=== PATIENT | male | born 1960 | race Caucasian/White ===

== ENCOUNTER 2018-12-13 10:43 | Inpatient (IN) | payer MEDICAID, OTHER ==
[~2018-12-13] VITALS: Ht 182.9 cm; Wt 88.5 kg
[2018-12-13 10:49] VITALS: BP_SYST 129
[2018-12-13] MEDS ORDERED: NACL 0.9% 1,000 ML IV ONE (11:10)
[2018-12-13] MEDS ORDERED: MORPHINE 4 MG/ML INJ. SYRINGE IVP ONE (11:15)
[2018-12-13] MEDS ORDERED: ONDANSETRON HCL 4 MG/2 ML VIAL IVP ONE ×2 (11:15→17:05)
[2018-12-13 11:51] LABS: BASOPHILS # (AUTO) 0.1 K/uL (0.0-0.2); BASOPHILS % (AUTO) 0.7 % (0.0-2.0); EOSINOPHILS % (AUTO) 0.3 % (0.0-4.0); HEMATOCRIT 41.1 % (36-54); HEMOGLOBIN 13.9 g/dL (14.0-18.0); LYMPHOCYTES # (AUTO) 0.4 K/uL (1.0-5.5); LYMPHOCYTES % (AUTO) 5.2 % (20.5-51.5); MEAN CORPUSCULAR HEMOGLOBIN 31 pg (27-31); MEAN CORPUSCULAR HGB CONC 34 % (32-36); MEAN CORPUSCULAR VOLUME 90 fL (79.0-98.0); MONOCYTES # (AUTO) 0.4 K/uL (0.0-1.0); MONOCYTES % (AUTO) 5.7 % (1.7-9.3); NEUTROPHILS % (AUTO) 88.1 % (40.0-70.0); PLATELET COUNT (AUTO) 213 K/uL (130-430); RED BLOOD CELL COUNT(AUTO) 4.57 MIL/uL (4.2-6.2); RED CELL DISTRIBUTION WIDTH 13.8 % (9.0-15.0); WHITE BLOOD COUNT (AUTO) 7.9 K/uL (4.8-10.8)
[2018-12-13 12:00] LABS: CALCIUM 9.5 mg/dL (8.4-11.0); CREATININE 0.97 mg/dL (0.55-1.30); POTASSIUM 4.1 mmol/L (3.5-5.1)
[2018-12-13 12:03] LABS: PROTHROMBIN TIME 10.5 SECS (9.5-12.5)
[2018-12-13 12:05] LABS: ALBUMIN 4.2 g/dL (3.4-4.8); TOTAL BILIRUBIN 0.6 mg/dL (0.0-1.0)
[2018-12-13 12:18] LABS: BILIRUBIN,URINE NEGATIVE (NEGATIVE); BLOOD, URINE NEGATIVE (NEGATIVE); CLARITY/URINE CLEAR (CLEAR); COLOR,URINE YELLOW (YELLOW); GLUCOSE,URINE 1+ (NEGATIVE); KETONES,URINE TRACE (NEGATIVE); LEUKOCYTE ESTERASE ,URINE NEGATIVE (NEGATIVE); NITRITE, URINE NEGATIVE (NEGATIVE); PH,URINE 6.5 (5.0-8.0); PROTEIN URINE NEGATIVE (NEGATIVE)
[2018-12-13] MEDS ORDERED: PIPERACILLIN/TAZO 4.5 GM in NS 100 ML IV ONE (12:30)
[2018-12-13] MEDS ORDERED: FAMOTIDINE PF 20 MG/2 ML VIAL IVP SCH (13:15)
[2018-12-13] MEDS ORDERED: ONDANSETRON HCL 4 MG/2 ML VIAL IVP PRN (13:15)
[2018-12-13] MEDS ORDERED: LR 1,000 ML IV SCH ×2 (13:30→18:08)
[2018-12-13 13:49] LABS: PROTHROMBIN TIME 10.4 SECS (9.5-12.5)
[2018-12-13 14:30] VITALS: BP_SYST 153
[2018-12-13] MEDS ORDERED: TEMAZEPAM 15 MG CAPSULE PO PRN (16:45)
[2018-12-13] MEDS ORDERED: MORPHINE 2 MG/ML INJ. SYRINGE IVP PRN (16:45)
[2018-12-13] MEDS ORDERED: MORPHINE 4 MG/ML INJ. SYRINGE IVP PRN ×4 (16:45→18:15)
[2018-12-13] MEDS ORDERED: ROCURONIUM BROMIDE 10 MG/ML (ZEMURON) IV ONE (17:05)
[2018-12-13] MEDS ORDERED: BUPIVACAINE LIPOSOME/PF 266 MG/20 ML VIAL INFIL ONE ×2 (17:05→18:31)
[2018-12-13] MEDS ORDERED: PROPOFOL 200MG/ 20ML VIAL (DIPRIVAN) IV ONE (17:05)
[2018-12-13] MEDS ORDERED: SEVOFLURANE 15 MIN GAS INH ONE (17:05)
[2018-12-13] MEDS ORDERED: NS IRRIG SOLN 1000 ML IR ONE (17:05)
[2018-12-13] MEDS ORDERED: MIDAZOLAM HCL 5 MG/5 ML VIAL IVP ONE (17:05)
[2018-12-13] MEDS ORDERED: fentaNYL CITRATE/PF 100 MCG/2 ML AMP IVP ONE (17:05)
[2018-12-13] MEDS ORDERED: PHENYLEPHRINE HCL 10 MG/ML VIAL (NEOSYNEPHRINE) IV ONE (17:05)
[2018-12-13] MEDS ORDERED: fentaNYL CITRATE 250 MCG/5 ML AMP IV ONE (17:05)
[2018-12-13] MEDS ORDERED: GLYCOPYRROLATE 0.2 MG/ML VIAL IJ ONE (17:05)
[2018-12-13] MEDS ORDERED: POLYMYXIN 500,000/BACIT.10,000 UNITS in NS IRR 1 L IR ONE (17:17)
[2018-12-13] MEDS ORDERED: METOCLOPRAMIDE HCL 10 MG/2 ML VIAL IVP PRN (18:15)
[2018-12-13] MEDS ORDERED: HYDROcodone/ACETAMIN 5-325 MG TAB (NORCO/ VICODIN) PO PRN (18:45)
[2018-12-13 19:50] VITALS: BP_SYST 126
[2018-12-13 21:41] VITALS: BP_SYST 128
[2018-12-13 22:34] VITALS: BP_SYST 125
[2018-12-13] MEDS: D5/0.45 NS 1,000 ML IV SCH (22:42)
[2018-12-14] MEDS: D5/0.45 NS 1,000 ML IV SCH ×2 (06:52→15:52)
[2018-12-14 07:11] LABS: BASOPHILS % (AUTO) 0.5 % (0.0-2.0); EOSINOPHILS # (AUTO) 0.1 K/uL (0.0-0.4); EOSINOPHILS % (AUTO) 1.6 % (0.0-4.0); HEMATOCRIT 38.1 % (36-54); HEMOGLOBIN 12.7 g/dL (14.0-18.0); LYMPHOCYTES # (AUTO) 0.9 K/uL (1.0-5.5); LYMPHOCYTES % (AUTO) 13.4 % (20.5-51.5); MEAN CORPUSCULAR HEMOGLOBIN 30 pg (27-31); MEAN CORPUSCULAR HGB CONC 33 % (32-36); MEAN CORPUSCULAR VOLUME 90 fL (79.0-98.0); MONOCYTES # (AUTO) 0.6 K/uL (0.0-1.0); NEUTROPHILS % (AUTO) 75.5 % (40.0-70.0); PLATELET COUNT (AUTO) 205 K/uL (130-430); RED BLOOD CELL COUNT(AUTO) 4.25 MIL/uL (4.2-6.2); RED CELL DISTRIBUTION WIDTH 13.8 % (9.0-15.0); WHITE BLOOD COUNT (AUTO) 6.6 K/uL (4.8-10.8)
[2018-12-14 07:13] LABS: CALCIUM 8.6 mg/dL (8.4-11.0); CREATININE 1.04 mg/dL (0.55-1.30); POTASSIUM 4.2 mmol/L (3.5-5.1)
[2018-12-14 08:09] VITALS: BP_SYST 114
[2018-12-14 12:04] VITALS: BP_SYST 121
[2018-12-14 17:32] VITALS: BP_SYST 120
[2018-12-14 20:00] VITALS: BP_SYST 118
[2018-12-15] MEDS: D5/0.45 NS 1,000 ML IV SCH ×3 (00:02→20:37)
[2018-12-15 00:06] VITALS: BP_SYST 103
[2018-12-15 07:37] VITALS: BP_SYST 111
[2018-12-15 11:27] VITALS: BP_SYST 128
[2018-12-15 15:20] VITALS: BP_SYST 118
[2018-12-15 20:00] VITALS: BP_SYST 124
[2018-12-16 01:04] VITALS: BP_SYST 107
[2018-12-16] MEDS: D5/0.45 NS 1,000 ML IV SCH ×2 (06:33→16:10)
[2018-12-16 08:00] VITALS: BP_SYST 108
[2018-12-16 11:20] VITALS: BP_SYST 143
[2018-12-16 15:22] VITALS: BP_SYST 115
[2018-12-16 18:28] VITALS: BP_SYST 115
== END 2018-12-16 19:02 | disposition home or self-care (01) | DRG 228 ==
LOC: SED 10:43 → SMU 13:10
PROVIDERS: ADMIT Internal Medicine; ATTEND Internal Medicine
PROC: 0YU50JZ Supplement Right Inguinal Region with Synthetic Substitute, Open Approach (ICD-10-PCS; principal; 2018-12-13 17:07)
DX: K40.30 Unilateral inguinal hernia, with obstruction, without gangrene, not specified as recurrent (principal); Z59.0 Homelessness; Z60.2 Problems related to living alone; Z79.899 Other long term (current) drug therapy
CPT/HCPCS: 36415; 71045; 80048; 80053; 81003; 82150-TC; 82550-TC; 83605; 83690-TC; 84484; 85025; 85610-TC; 85730-TC; 86886; 86900; 86901; 87040-TC; 87081; 94010; 94640; 94760; 96374; 96375; 99285; C9290; J2250; J2270; J2370; J2405; J2543; J2704; J3010; J3490; J7030; J7120